=== PATIENT | male | born 1990 | race Caucasian/White ===

== ENCOUNTER 2019-07-14 07:14 | Outpatient (CLI) | payer OTHER, SELFPAY ==
--- NOTE | 2019-07-14 07:25 | MERGE_ITS ---
*[facility]* *[facility]* [address] [place] [address] Date of study: 07/14/2019 Transthoracic Echocardiography M-mode, complete 2D, complete spectral Doppler, and color Doppler *STUDY CONCLUSIONS* Summary: 1. Left ventricle: The cavity size was normal. Wall thickness was normal. Systolic function was normal. The estimated ejection fraction was 55-60%. Wall motion was normal; there were no regional wall motion abnormalities. 2. Aortic valve: Trileaflet; mildly thickened, mildly calcified leaflets. There was moderate regurgitation. 3. Aorta: The aorta was not dilated. 4. Mitral valve: There was mild to moderate regurgitation. 5. Right ventricle: The cavity size was normal. Wall thickness was normal. Systolic function was normal. *PATIENT PRESENTATION* Height: 180.3cm (71in ) S/D Pressure: 139 / 85 Weight: 79.4kg (174.6lb ) BSA: 2m^2 Test start time: 07:25 AM. Test stop time: 08:15 AM. PERFORMING [facility] [employer] Marcella Echeverria Daniel ORDERING Vamsi Manzano REFERRING Vamsi Manzano *PROCEDURE DATA* Procedure information: This study was interpreted by [facility]. Pertinent images and digital data are archived for permanent storage and are available for subsequent review. No prior study was available for comparison. Study status: Routine. Transthoracic echocardiography. M-mode, complete 2D, complete spectral Doppler, and color Doppler. A Transthoracic Echocardiogram was performed. Scanning was performed from the parasternal, apical, subcostal, and suprasternal notch acoustic windows. Images were obtained using an [employer] Sc [id number] cardiac ultrasound machine. Image quality was adequate. Study completion: The patient tolerated the procedure well. There were no complications. History: PMH: Congenital Aortic Insufficiency. *CARDIAC ANATOMY* Left ventricle: The cavity size was normal. Wall thickness was normal. Systolic function was normal. The estimated ejection fraction was 55-60%. Wall motion was normal; there were no regional wall motion abnormalities. Diastolic parameters were normal. Aortic valve: Trileaflet; mildly thickened, mildly calcified leaflets. Mobility was not restricted. Doppler: Transvalvular velocity was within the normal range. There was no stenosis. There was moderate regurgitation. VTI ratio of LVOT to aortic valve: 0.77. Peak velocity ratio of LVOT to aortic valve: 0.72. Mean velocity ratio of LVOT to aortic valve: 0.66. Mean gradient (S): 6.9mm Hg. Peak gradient (S): 12.1mm Hg. Aorta: The aorta was not dilated. Aortic root: The aortic root was normal in size. Ascending aorta: The ascending aorta was normal in size. Mitral valve: Structurally normal valve. Mobility was not restricted. Doppler: Transvalvular velocity was within the normal range. There was no evidence for stenosis. There was mild to moderate regurgitation. Valve area by pressure half-time: 3.9cm^2. Indexed valve area by pressure half-time: 1.9cm^2/m^2. Peak gradient (D): 2.7mm Hg. Left atrium: The atrium was normal in size. Right ventricle: The cavity size was normal. Wall thickness was normal. Systolic function was normal. Pulmonic valve: Structurally normal valve. Doppler: Transvalvular velocity was within the normal range. There was no evidence for stenosis. There was mild regurgitation. Peak gradient (S): 2.2mm Hg. Tricuspid valve: Structurally normal valve. Doppler: Transvalvular velocity was within the normal range. There was no evidence for stenosis. There was mild regurgitation. Pulmonary artery: Pulmonary systolic pressure was within the normal range, in the range of 25mm Hg to 30mm Hg. Right atrium: The atrium was normal in size. Pericardium: There was no pericardial effusion. Systemic veins: Inferior vena cava: The vessel was normal in size. Measurements Left ventricle Value Reference LV ID, ED, PLAX 5.5 cm 3.5 - 6.0 LV ID, ES, PLAX 3.8 cm 2.1 - 4.0 LV PW thickness, ED, PLAX 0.9 cm LV end-diastolic volume, 1-p A2C 145 ml LV ejection fraction, 1-p A2C 65 % LV end-diastolic volume, 1-p A4C 126 ml LV ejection fraction, 1-p A4C 58 % LV e', lateral 0.128 m/sec LV E/e', lateral 6 LV e', medial 0.077 m/sec LV E/e', medial 11 LV e', average 0.102 m/sec LV E/e', average 8 Ventricular septum Value Reference IVS thickness, ED, PLAX 0.8 cm LVOT Value Reference LVOT peak velocity, S 1.25 m/sec LVOT mean velocity, S 0.82 m/sec LVOT VTI, S 30.0 cm LVOT peak gradient, S 6.2 mm Hg LVOT mean gradient, S 3.2 mm Hg Aortic valve Value Reference Aortic valve peak velocity, S 1.7 m/sec Aortic valve mean velocity, S 1.2 m/sec Aortic valve VTI, S 39.0 cm Aortic mean gradient, S 6.9 mm Hg Aortic peak gradient, S 12.1 mm Hg VTI ratio, LVOT/AV 0.77 Velocity ratio, peak, LVOT/AV 0.72 Velocity ratio, mean, LVOT/AV 0.66 Aortic regurg deceleration 222 cm/s^2 Aortic regurg pressure half-time 615 ms Aorta Value Reference Aortic root ID, ED 3.3 cm Left atrium Value Reference LA ID, A-P, ES 3.0 cm LA ID/bsa, A-P 1.5 cm/m^2 <=2.2 LA volume, ES, 2-p 49 ml LA volume/bsa, ES, 2-p 25 ml/m^2 LA/aortic root ratio 0.91 Mitral valve Value Reference Mitral E-wave peak velocity 0.82 m/sec Mitral A-wave peak velocity 0.53 m/sec Mitral deceleration time 197 ms 150 - 230 Mitral pressure half-time 57 ms Mitral peak gradient, D 2.7 mm Hg Mitral E/A ratio, peak 1.55 Mitral valve area, PHT, DP 3.9 cm^2 Tricuspid valve Value Reference Tricuspid regurg peak velocity 2.2 m/sec Tricuspid peak RV-RA gradient 19.9 mm Hg Right atrium Value Reference RA area, ES, A4C 14.6 cm^2 8.3 - 19.5 Pulmonic valve Value Reference Pulmonic peak gradient, S 2.2 mm Hg Legend: (L) and (H) jf values outside specified reference range. I have personally reviewed the images and have reviewed and edited the reported findings. Electronically signed by Olegario Camp 07/14/2019 10:19
== END 2019-07-14 07:34 ==
PROVIDERS: PCP Emergency Medicine; Visit Provider Internal Medicine Cardiovascular Disease
DX: Q23.1 Congenital insufficiency of aortic valve (principal); I08.0 Rheumatic disorders of both mitral and aortic valves; I51.7 Cardiomegaly
CPT/HCPCS: 93306